=== PATIENT | female | born 2000 | race Caucasian/White ===

== ENCOUNTER 2022-12-04 22:04 | Inpatient (IN) | payer OTHER, SELFPAY ==
--- NOTE | 2022-12-04 22:20 | DI.RAD.S_ITS ---
PROCEDURE: XR CHEST 1V INDICATIONS: suspected sepsis TECHNIQUE: One view of the chest was acquired. COMPARISON: None. FINDINGS: Surgical changes and devices: None. Lungs and pleura: Lungs are clear. No pleural effusions or pneumothorax. Mediastinum: Mediastinal contours appear normal. Heart size is normal. Bones and chest wall: No suspicious bony lesions. Overlying soft tissues appear unremarkable. IMPRESSION: 1. No acute cardiopulmonary disease. Dictated by: Tio Nevarez M.D. on 12/05/2022 at 0:22 Approved by: Tio Nevarez M.D. on 12/05/2022 at 0:23
[2022-12-04 22:22] VITALS: BP 151/80; PULSE 120; RESP 28; TEMP 36.6; O2SAT 94; BMI 20.5
[2022-12-04 22:42] LABS: Add Manual Diff / Slide Review NO; Basophils Absolute Auto 100 /uL (0-100); Basophils Percent Auto 0.6 % (0-2); Eosinophils Absolute Auto 1400 /uL (0-450); Eosinophils Percent Auto 9.6 % (2-4); Hematocrit 37.8 % (36-46); Hemoglobin 12.9 g/dL (12.0-16.0); Lymphocytes Absolute Auto 2700 /uL (1100-4500); Lymphocytes Percent Auto 17.9 % (25-40); Mean Corpuscular HGB Conc 34.1 % (30-36); Mean Corpuscular Hemoglobin 30.6 PG (26-34); Mean Corpuscular Volume 89.6 fL (80-100); Monocytes Absolute Auto 1600 /uL (0-900); Monocytes Percent Auto 10.9 % (3-14); Neutrophils Absolute Auto 9000 /uL (1500-7000); Platelet Count 351 X10^3/uL (150-400); Red Blood Cell Count 4.22 X10^6/uL (4.0-5.2); Red Cell Distribution Width 12.7 % (11.6-14.8); White Blood Cell Count 14.8 X10^3/uL (4.5-11.0)
[2022-12-04 22:49] LABS: INR 1.1 (0.9-1.3); Prothrombin Time 13.1 SECONDS (10.1-12.7)
[2022-12-04 22:52] LABS: PTT Partial Thromboplastin Tim 34 SECONDS (26-36)
--- NOTE | 2022-12-04 22:52 | ED.GENADULT ---
HPI - General Adult General Chief complaint: Shortness of Breath/Dyspnea Stated complaint: Asthma, Congestion, Hard to breathe Time Seen by Provider: 12/04/22 22:46 Source: patient Mode of arrival: Ambulatory History of Present Illness HPI narrative: 22-year-old woman with a history of mild persistent asthma presents with 3 days of worsening respiratory symptoms in severe respiratory distress. She is had upper URI type symptoms has been using her Advair appropriately and increased her albuterol nebulizers over the last 48 hours. She describes productive cough, congestion and increased work of breathing. She states that she had similar symptoms about a year ago and was hospitalized. She states that she is never been intubated because of her asthma. She is not complaining of vomiting diarrhea abdominal pain. She has an IUD and does not suspect . On arrival in the emergency department she is pale with perioral cyanosis, poor air movement overall and looks like she is beginning to show respiratory fatigue. Related Data Home Medications Medication Instructions Recorded Confirmed albuterol sulfate 1.25 mg/3 mL 2.5 mg inhalation ONCE PRN 07/28/21 11/27/22 solution for nebulization Previous Rx's Medication Instructions Recorded amitriptyline 25 mg tablet 25 mg PO BEDTIME Depression and 11/27/22 Headache #90 tabs fluticasone 100 mcg-salmeterol 50 See Rx Instructions .Route 11/27/22 mcg/dose blistr powdr for .COMPLEX Asthma #60 ea inhalation montelukast 10 mg tablet 10 mg PO BEDTIME Asthma #90 tabs 11/27/22 (Singulair) albuterol sulfate 90 mcg/actuation 2 puff PO Q4H PRN shortness of 12/04/22 aerosol inhaler breath or wheezing #8.5 grams Allergies Allergy/AdvReac Type Severity Reaction Status Date / Time SEASONAL ALLERGIES Allergy Unknown Uncoded 11/27/22 09:13 Review of Systems Review of Systems Narrative: Pertinent positive and negative findings as per HPI Patient History Medical History Anemia (~2013) Anxiety (~2013) Depression (~2013) Eczema Family History Father Ulcerative colitis Asthma Mother Arthritis Fibromyalgia Mental health problem Grandmother Cancer Social History Smoking Status: Current every day smoker Smoking Status: Current every day smoker Exam Initial Vital Signs Initial Vital Signs: Vital Signs Temperature 97.9 F 12/04/22 22:22 Pulse Rate 120 H 12/04/22 22:22 Respiratory Rate 28 H 12/04/22 22:22 Blood Pressure 151/80 H 12/04/22 22:22 Pulse Oximetry 94 12/04/22 22:22 Oxygen Delivery Method Room Air 12/04/22 22:22 General: Significant respiratory distress with perioral cyanosis, poor overall perfusion poor air flow throughout and shallow breathing with concerns for impending respiratory failure HEENT: Dry mucous membranes, normal sclera with reactive pupils, Neck: No cervical adenopathy supple Respiratory: Initially almost no movement at all. After DuoNeb slightly improved movement course rhonchi appreciated in the left side particularly left mid axillary line and diffuse wheeze both inspiratory and expiratory bilaterally. She does have some mild supraclavicular and abdominal retractions and looks fatigued. After initial nebulizer she is able to speak in 4-5 word sentences but does continue to tripod. Cardiac: Tachycardic otherwise Regular rate and rhythm no murmurs no bruits Abdomen: Soft, nontender, good bowel tones, no flank pain Skin: Dry, poor overall perfusion no rashes Neurologic: Grossly neurologically intact with no obvious asymmetries or abnormalities Extremities: No trauma, no edema Psych: Cooperative, appropriate insight and affect Course Orders Ordered: ED Orders 12/04/22 22:20 XR chest 1V Stat RT Consult Eval and Treat NOW 12/04/22 22:30 Complete Blood Count AUTO DIFF Stat Comprehensive Metabolic Panel Stat Lactate (Lactic Acid) Stat Lipase Stat PTT Partial Thromboplastin Ad Stat Procalcitonin Stat Prothrombin Time INR Stat Respiratory Panel (Film Array) Stat 12/04/22 22:49 VBG [Venous Blood Gas] Stat 12/04/22 22:55 Blood Culture Stat Ondansetron HCl (Ondansetron 4 Mg/2 Ml Inj) 4 mg IV NOW PRN PRN Reason: Nausea And Vomiting Ondansetron HCl (Ondansetron 4 Mg Odt) 4 mg SL NOW PRN PRN Reason: Nausea And Vomiting Discontinued Medications Albuterol (Albuterol 2.5 Mg/3 Ml Neb (Adult)) 10 mg INH NOW ONE Stop: 12/04/22 22:48 Last Admin: 12/04/22 23:00 Dose: 10 mg Documented By: MATT Albuterol (Albuterol 2.5 Mg/3 Ml Neb (Adult)) 10 mg INH NOW ONE Stop: 12/05/22 00:14 Last Admin: 12/05/22 00:22 Dose: 10 mg Documented By: MATT Sodium Chloride (Normal Saline 0.9%) 1,000 mls @ 1,000 mls/hr IV BOLUS ONE Stop: 12/04/22 23:19 Last Infusion: 12/05/22 01:14 Dose: 0 mls/hr Documented By: Admin: 12/04/22 23:02 Dose: 1,000 mls/hr Documented By: OREN Magnesium Sulfate (Magnesium Sulfate) 2 gm in 50 mls @ 150 mls/hr IV NOW ONE Stop: 12/04/22 23:06 Last Infusion: 12/04/22 23:20 Dose: 0 mls/hr Documented By: CHRISTIANO Co-signed By: KIM Admin: 12/04/22 22:58 Dose: 150 mls/hr Documented By: Co-signed By: KIM Ceftriaxone Sodium 2,000 mg/ (Sodium Chloride) 100 mls @ 200 mls/hr IV NOW ONE Stop: 12/04/22 22:48 Last Infusion: 12/04/22 23:21 Dose: 0 mls/hr Documented By: Admin: 12/04/22 23:00 Dose: 200 mls/hr Documented By: Azithromycin 500 mg/ Dextrose 250 mls @ 250 mls/hr IV NOW ONE Stop: 12/04/22 22:48 Last Infusion: 12/05/22 01:15 Dose: 0 mls/hr Documented By: Admin: 12/04/22 23:38 Dose: 250 mls/hr Documented By: CHRISTIANO Methylprednisolone (Methylprednisolone 125 Mg/2 Ml Vial) 125 mg IV NOW ONE Stop: 12/04/22 22:48 Last Admin: 12/04/22 22:58 Dose: 125 mg Documented By: Vital Signs Vital signs: Vital Signs - 8 hr 12/04/22 22:22 12/04/22 23:04 12/04/22 23:05 Temperature 97.9 F Pulse Rate 120 H 102 H Respiratory Rate 28 H Blood Pressure 151/80 H 121/78 Pulse Oximetry 94 98 Oxygen Delivery Method Room Air Oxygen Flow Rate 12/04/22 23:05 12/04/22 23:34 12/05/22 00:00 Temperature Pulse Rate 102 H 112 H Respiratory Rate 21 Blood Pressure 139/75 Pulse Oximetry 98 89 L Oxygen Delivery Method Oxygen Flow Rate 12/05/22 00:00 12/05/22 00:24 Temperature Pulse Rate 114 H 112 H Respiratory Rate 28 H Blood Pressure Pulse Oximetry 94 98 Oxygen Delivery Method Oxygen Flow Rate 8 Medical Decision Making Lab Data 12/04/22 22:30 12/04/22 22:30 Labs: Lab Results 12/04/22 12/04/22 12/04/22 Range/Units 22:30 22:30 22:30 WBC 14.8 H (4.5-11.0) X10^3/uL RBC 4.22 (4.0-5.2) X10^6/uL Hgb 12.9 (12.0-16.0) g/dL Hct 37.8 (36-46) % MCV 89.6 (80-100) fL MCH 30.6 (26-34) PG MCHC 34.1 (30-36) % RDW 12.7 (11.6-14.8) % Plt Count 351 (150-400) X10^3/uL Neut % (Auto) 61.0 (50-75) % Lymph % (Auto) 17.9 L (25-40) % [place] % (Auto) 10.9 (3-14) % Eos % (Auto) 9.6 H (2-4) % Baso % (Auto) 0.6 (0-2) % Neut # (Auto) 9000 H (8006-3628) /uL Lymph # (Auto) 2700 (5692-1245) /uL [place] # (Auto) 1600 H (0-900) /uL Eos # (Auto) 1400 H (0-450) /uL Baso # (Auto) 100 (0-100) /uL PT 13.1 H (10.1-12.7) SECONDS INR 1.1 (0.9-1.3) APTT 34 (26-36) SECONDS Sodium 136 L (137-145) mmol/L Potassium 3.6 (3.4-5.1) mmol/L Chloride 102 (98-107) mmol/L Carbon Dioxide 23 (22-32) mmol/L BUN 8 (7-17) mg/dL Creatinine 0.50 L (0.52-1.04) mg/dL Estimated GFR > 60 (>60) mL/min BUN/Creatinine Ratio 16.0 (6-22) Glucose 105 H (70-100) mg/dL Lactate (0.7-2.1) mmol/L Calcium 9.6 (8.4-10.2) mg/dL Total Bilirubin 0.5 (0.2-1.3) mg/dL AST 20 (14-36) IU/L ALT 16 (<35) IU/L Alkaline Phosphatase 43 (38-126) U/L Total Protein 8.0 (6.3-8.2) g/dL Albumin 4.5 (3.5-5.0) g/dL Globulin 3.5 (1.7-4.1) g/dL Albumin/Globulin Ratio 1.3 (1.0-2.8) Lipase 49 (23-300) U/L Procalcitonin 0.04 (<0.5) ng/mL Chlamy pneumoniae PCR (Not Detect) Adenovirus (PCR) (Not Detect) B. pertussis DNA (PCR) (Not Detecte) B.parapertussis DNA PCR (Not Detecte) Coronavirus OC43 (PCR) (Not Detect) Coronavirus HKU1 (PCR) (Not Detect) Coronavirus 229E (PCR) (Not Detect) SARS-CoV-2 (PCR) (Not Detecte) Coronavirus NL63 (PCR) (Not Detect) Human Metapneumovir PCR (Not Detect) Influenza Type A (PCR) (Not Detect) Influenza Type B (PCR) (Not Detect) M. pneumoniae (PCR) (Not Detect) Parainfluenza 1 (PCR) (Not Detect) Parainfluenza 2 (PCR) (Not Detect) Parainfluenza 3 (PCR) (Not Detect) Parainfluenza 4 (PCR) (Not Detect) RSV (PCR) (Not Detect) Entero/Rhino (PCR) (Not Detect) 12/04/22 12/04/22 Range/Units 22:30 22:30 WBC (4.5-11.0) X10^3/uL RBC (4.0-5.2) X10^6/uL Hgb (12.0-16.0) g/dL Hct (36-46) % MCV (80-100) fL MCH (26-34) PG MCHC (30-36) % RDW (11.6-14.8) % Plt Count (150-400) X10^3/uL Neut % (Auto) (50-75) % Lymph % (Auto) (25-40) % [place] % (Auto) (3-14) % Eos % (Auto) (2-4) % Baso % (Auto) (0-2) % Neut # (Auto) (4263-8135) /uL Lymph # (Auto) (5477-9436) /uL [place] # (Auto) (0-900) /uL Eos # (Auto) (0-450) /uL Baso # (Auto) (0-100) /uL PT (10.1-12.7) SECONDS INR (0.9-1.3) APTT (26-36) SECONDS Sodium (137-145) mmol/L Potassium (3.4-5.1) mmol/L Chloride (98-107) mmol/L Carbon Dioxide (22-32) mmol/L BUN (7-17) mg/dL Creatinine (0.52-1.04) mg/dL Estimated GFR (>60) mL/min BUN/Creatinine Ratio (6-22) Glucose (70-100) mg/dL Lactate 1.3 (0.7-2.1) mmol/L Calcium (8.4-10.2) mg/dL Total Bilirubin (0.2-1.3) mg/dL AST (14-36) IU/L ALT (<35) IU/L Alkaline Phosphatase (38-126) U/L Total Protein (6.3-8.2) g/dL Albumin (3.5-5.0) g/dL Globulin (1.7-4.1) g/dL Albumin/Globulin Ratio (1.0-2.8) Lipase (23-300) U/L Procalcitonin (<0.5) ng/mL Chlamy pneumoniae PCR Not detected (Not Detect) Adenovirus (PCR) Not detected (Not Detect) B. pertussis DNA (PCR) Not detected (Not Detecte) B.parapertussis DNA PCR Not detected (Not Detecte) Coronavirus OC43 (PCR) Not detected (Not Detect) Coronavirus HKU1 (PCR) Not detected (Not Detect) Coronavirus 229E (PCR) Not detected (Not Detect) SARS-CoV-2 (PCR) Not detected (Not Detecte) Coronavirus NL63 (PCR) Not detected (Not Detect) Human Metapneumovir PCR Not detected (Not Detect) Influenza Type A (PCR) Not detected (Not Detect) Influenza Type B (PCR) Not detected (Not Detect) M. pneumoniae (PCR) Not detected (Not Detect) Parainfluenza 1 (PCR) Not detected (Not Detect) Parainfluenza 2 (PCR) Not detected (Not Detect) Parainfluenza 3 (PCR) Not detected (Not Detect) Parainfluenza 4 (PCR) Not detected (Not Detect) RSV (PCR) Not detected (Not Detect) Entero/Rhino (PCR) Detected H (Not Detect) Point of Care Testing Test Results Negative Urine Dip Bedside Urine Glucose Negative Bedside Urine Bilirubin - Negative Bedside Urine Ketone - Negative Urine Specific [place] 1.005 Bedside Urine Occult Blood - Negative Bedside Urine pH 6.5 Bedside Urine Protein - Negative Bedside Urine Urobilinogen - Negative Bedside Urine Nitrite - Negative Bedside Urine Leukocytes - Negative Esterase Point of care testing: Point of Care Testing Test Results Negative Urine Dip Bedside Urine Glucose Negative Bedside Urine Bilirubin - Negative Bedside Urine Ketone - Negative Urine Specific [place] 1.005 Bedside Urine Occult Blood - Negative Bedside Urine pH 6.5 Bedside Urine Protein - Negative Bedside Urine Urobilinogen - Negative Bedside Urine Nitrite - Negative Bedside Urine Leukocytes - Negative Esterase MDM Narrative Medical decision making narrative: CC: Severe asthma with respiratory distress Complicating co-morbidities: Moderate persistent asthma Data collected from: patient, significant other Differential considered: Severe asthma, sepsis, pneumonia, pneumothorax, acute coronary syndrome, pulmonary embolism Exam documented above, pertinent findings include: Severe respiratory distress with concern for progression to failure secondary to overall respiratory fatigue. Suspect left lobe pneumonia as well as severe asthma exacerbation Lab Test results independently reviewed as above. Pertinent findings: CBC shows mild leukocytosis at 14.8 without significant left shift Chemistries are reassuring with no significant renal abnormalities or electrolyte abnormalities. Lactic acid is not elevated Procalcitonin is undetectable Respiratory panel shows entero rhino virus Imaging studies independently reviewed: Chest x-ray shows no pneumothorax, infiltrates or cardiomyopathy Consultations:Hospitalist, Dr Chua Treatments: Nebulizer treatments, fluids, magnesium, IV steroids, IV antibiotics Re-evaluations: DuoNeb followed by 10 mg of albuterol, fluids, magnesium, IV Solu-Medrol, ceftriaxone and azithromycin after blood cultures are obtained Discussion: 22-year-old with moderate persistent asthma with significant exacerbation and respiratory distress still with significant reason want rhonchi throughout. No pneumothorax no concerns for pulmonary embolism or acute coronary syndrome. She is responded to continuous nebulizer, steroids antibiotics and IV magnesium. Initially there was a concern for sepsis given her elevated white blood cell count and initial presentation however lactate is normal and chest x-ray does not suggest significant consolidated infiltrate. I suspect that this is her rhino enterovirus causing severe exacerbation of her overall asthma. Care is reviewed with the hospitalist and patient will be admitted. Findings reviewed with patient and her significant other questions are answered and she is safe for transfer to floor Critical Care Time Critical Care Time Critical Care Time: Yes Total Critical Care Time: 41 Attestation: Critical care time is separate from other billable procedures. There is a high probability of a significant, sudden or life-threatening deterioration that requires my full and direct attention, intervention and personal management. This critical care time includes consultation with family and other consulting doctors, review of records, and interpretation of data from labs, EKGs and imaging as well as managements of severe respiratory distress in the setting of significant asthma exacerbation Discharge Plan Departure Patient Disposition: Admitted As Inpatient Clinical Impression: Unspecified asthma with (acute) exacerbation, Enterovirus infection Prescriptions: No Action albuterol sulfate 90 mcg/actuation HFA aerosol inhaler 2 puff PO Q4H PRN (Reason: shortness of breath or wheezing) Qty: 8.5 5RF albuterol sulfate 1.25 mg/3 mL solution for nebulization 2.5 mg inhalation ONCE PRN Rx Instructions: 2.5 mg/3 mL (0.083%) solution; inhalation to be used with nebulizer unit; Quantity: 1 Box(es); 14 days supply; 2 refill(s) 01/02/2020 amitriptyline 25 mg tablet 25 mg PO BEDTIME Qty: 90 4RF Rx Instructions: 25 mg tablet; TAKE 1 TABLET BY MOUTH AT BEDTIME; Quantity: 30 Tablet(s); 30 days supply; 6 refill(s) 07/23/2019 fluticasone propion-salmeterol 100-50 mcg/dose blister with device See Rx Instructions .ROUTE .COMPLEX Qty: 60 3RF Dose Instruction: INHALE ONE PUFF BY MOUTH TWICE A DAY Rx Instructions: INHALE ONE PUFF BY MOUTH TWICE A DAY montelukast [Singulair] 10 mg tablet 10 mg PO BEDTIME Qty: 90 4RF Rx Instructions: 10 mg tablet; 1 tab oral at bedtime. Referrals: Ebony Varela PA-C [Primary Care Provider] - Admit Date/Time: 12/05/22 01:53 Admit Provider: David Chua
[2022-12-04 22:54] LABS: Alanine Aminotransferase 16 IU/L (<35); Albumin 4.5 g/dL (3.5-5.0); Albumin Globulin Ratio 1.3 (1.0-2.8); Alkaline Phosphatase 43 U/L (38-126); Aspartate Aminotransferase 20 IU/L (14-36); Bilirubin Total 0.5 mg/dL (0.2-1.3); Blood Urea Nitrogen 8 mg/dL (7-17); Calcium 9.6 mg/dL (8.4-10.2); Carbon Dioxide 23 mmol/L (22-32); Chloride 102 mmol/L (98-107); Estimated Glomerular Filt Rate > 60 mL/min (>60); Globulin 3.5 g/dL (1.7-4.1); Glucose 105 mg/dL (70-100); HEMOLYSIS < 15 (0-50); Lipase 49 U/L (23-300); Potassium 3.6 mmol/L (3.4-5.1); Sodium 136 mmol/L (137-145)
[2022-12-04 22:55] LABS: Lactate (Lactic Acid) 1.3 mmol/L (0.7-2.1)
[2022-12-04] MEDS: methylPREDNISolone 125 MG/2 ML VIAL IV (22:58)
[2022-12-04] MEDS: MAGNESIUM SULFATE 2 GM/50 ML PIGGYBACK IV (22:58)
[2022-12-04] MEDS: ALBUTEROL 2.5 MG/3 ML NEB (ADULT) 10 MG INH (23:00)
[2022-12-04] MEDS: cefTRIAXone 2,000 MG in SODIUM CHLORIDE 0.9% 100 ML 200 MG IV (23:00)
[2022-12-04] MEDS: SODIUM CHLORIDE 0.9% 1,000 ML 1000 ML IV (23:02)
[2022-12-04 23:04] VITALS: PULSE 102; O2SAT 98
[2022-12-04 23:05] VITALS: BP 121/78; PULSE 102; O2SAT 98
[2022-12-04 23:11] LABS: Procalcitonin 0.04 ng/mL (<0.5)
[2022-12-04 23:34] VITALS: PULSE 112; RESP 21; O2SAT 89
[2022-12-04 23:38] LABS: Adenovirus Not Detected (Not Detect); B. parapertussis Not Detected (Not Detecte); Bordetella pertussis Not Detected (Not Detecte); Chlamydophila pneumoniae Not Detected (Not Detect); Coronavirus 229E Not Detected (Not Detect); Coronavirus HKU1 Not Detected (Not Detect); Coronavirus NL 63 Not Detected (Not Detect); Coronavirus OC43 Not Detected (Not Detect); Human Metapneumovirus Not Detected (Not Detect); Human Rhinovirus/Enterovirus Detected (Not Detect); Influenza A Not Detected (Not Detect); Influenza B Not Detected (Not Detect); Mycoplasma pneumoniae Not Detected (Not Detect); Parainfluenza Virus 1 Not Detected (Not Detect); Parainfluenza Virus 2 Not Detected (Not Detect); Parainfluenza Virus 3 Not Detected (Not Detect); Parainfluenza Virus 4 Not Detected (Not Detect); Respiratory Syncytial Virus Not Detected (Not Detect); SARS- CoV-2 Not Detected (Not Detecte)
[2022-12-04] MEDS: AZITHROMYCIN 500 MG in DEXTROSE 5% IN WATER 250 ML 250 MG IV (23:38)
[2022-12-05] VITALS (40 sets, daily range): BP systolic 119–139; BP diastolic 67–83; PULSE 87–125; RESP 2–50; TEMP 36.9–37.3; O2SAT 90–99; BMI 19.8
[2022-12-05] MEDS: ALBUTEROL 2.5 MG/3 ML NEB (ADULT) 10 MG INH (00:22)
--- NOTE | 2022-12-05 00:42 | PC.NURSE ---
This RN takes over care from MALLORY Chavez. Pt is sitting upright in bed with continuous neb treatment as per provider direction. RR of 22, oxygen saturation at 98%, HR at 123. A&Ox4. Inspiratory & expiratory wheeze with rhonchi throughout all guerra bilaterally anterior & posteriorly. Pt denies any pain and is A&Ox4. Provider updated on patient presentation. No new orders at this time.
--- NOTE | 2022-12-05 02:27 | PM.HP.1 ---
History of Present Illness History of Present Illness Date Patient Seen: 12/05/22 Chief complaint: Asthma, Congestion, Hard to breathe Narrative: 22 y/o with PMH of moderate, persistent asthma, presented with severe exacerbation, severe bronchoconstriction and dyspnea. Positive for rhinovirus what probably triggered this flare, After prolonged treatment with bronchodilators and steroid, admitted for monitoring, supportive care, and ongoing treatment. [facility] Medical History Anemia (~2013) Anxiety (~2013) Depression (~2013) Eczema Family History Father Ulcerative colitis Asthma Mother Arthritis Fibromyalgia Mental health problem Grandmother Cancer Social History Smoking Status: Current every day smoker Meds Home Medications and Allergies Home Medications Medication Instructions Recorded Confirmed Type albuterol sulfate 1.25 mg/3 mL 2.5 mg inhalation ONCE PRN 07/28/21 11/27/22 History solution for nebulization amitriptyline 25 mg tablet 25 mg PO BEDTIME Depression and 11/27/22 11/27/22 Rx Headache #90 tabs fluticasone 100 mcg-salmeterol 50 See Rx Instructions .Route 11/27/22 11/27/22 Rx mcg/dose blistr powdr for .COMPLEX Asthma #60 ea inhalation montelukast 10 mg tablet 10 mg PO BEDTIME Asthma #90 tabs 11/27/22 11/27/22 Rx (Singulair) albuterol sulfate 90 mcg/actuation 2 puff PO Q4H PRN shortness of 12/04/22 Rx aerosol inhaler breath or wheezing #8.5 grams Allergies Allergy/AdvReac Type Severity Reaction Status Date / Time SEASONAL ALLERGIES Allergy Unknown Uncoded 11/27/22 09:13 Review of Systems Constitutional Constitutional: Reports malaise and Reports weakness Comments: no chills or sweats, no fever Cardiovascular Cardiovascular: Reports dyspnea Comments: w/o palpitations or chest pain Respiratory Respiratory: Reports chest congestion, Reports cough, Reports dyspnea and Reports wheezing Comments: severe shortness of breath, cough, thisck sputum Gastrointestinal Comments: w/o complaints Genitourinary Comments: w/o dysuria Neurologic Neurologic: Reports weakness Allergic/Immunologic Allergic/Immunologic: Reports wheezing Comments: had rough summer b/o the smoke in the air and pollen Exam Vital Signs (past 8 hours): - 12/04/22 22:22 12/04/22 23:04 12/04/22 23:05 Temperature 97.9 F Pulse Rate 120 H 102 H Respiratory Rate 28 H Blood Pressure 151/80 H 121/78 Pulse Oximetry 94 98 Oxygen Delivery Method Room Air Oxygen Flow Rate 12/04/22 23:05 12/04/22 23:34 12/05/22 00:00 Temperature Pulse Rate 102 H 112 H Respiratory Rate 21 Blood Pressure 139/75 Pulse Oximetry 98 89 L Oxygen Delivery Method Oxygen Flow Rate 12/05/22 00:00 12/05/22 00:24 12/05/22 00:30 Temperature Pulse Rate 114 H 112 H Respiratory Rate 28 H Blood Pressure 127/83 Pulse Oximetry 94 98 Oxygen Delivery Method Oxygen Flow Rate 8 12/05/22 00:30 12/05/22 01:00 12/05/22 01:00 Temperature Pulse Rate 125 H 118 H Respiratory Rate 21 32 H Blood Pressure 125/78 Pulse Oximetry 98 99 Oxygen Delivery Method Oxygen Flow Rate 12/05/22 01:30 12/05/22 01:30 12/05/22 02:00 Temperature Pulse Rate 113 H Respiratory Rate 34 H Blood Pressure 126/82 Pulse Oximetry 98 95 Oxygen Delivery Method Nasal Cannula Oxygen Flow Rate 2 Oxygen Delivery Method Nasal Cannula Oxygen Flow Rate 2 Const General: cooperative Other: sitting in bed in no distress HENMT Head: normal to inspection Other: nasal canulla Eyes General: appearance normal, both eyes and all related structures Other: eomi Neck Neck: normal visual inspection Resp Effort & Inspection: respiratory distress and uses accessory muscles Auscultation: wheezes Other: tachypneic, wheezy Cardio Rate: regular rate Rhythm: regular rhythm Other: RRR GI Inspection: normal to inspection Other: not distended Skin Other: no tashes Extrem Other: w/o swelling Objective Labs 12/04/22 22:30 12/04/22 22:30 Labs: Laboratory Results - last 24 hr 12/04/22 12/04/22 12/04/22 22:30 22:30 22:30 WBC 14.8 H RBC 4.22 Hgb 12.9 Hct 37.8 MCV 89.6 MCH 30.6 MCHC 34.1 RDW 12.7 Plt Count 351 Neut % (Auto) 61.0 Lymph % (Auto) 17.9 L [place] % (Auto) 10.9 Eos % (Auto) 9.6 H Baso % (Auto) 0.6 Neut # (Auto) 9000 H Lymph # (Auto) 2700 [place] # (Auto) 1600 H Eos # (Auto) 1400 H Baso # (Auto) 100 PT 13.1 H INR 1.1 APTT 34 Sodium 136 L Potassium 3.6 Chloride 102 Carbon Dioxide 23 BUN 8 Creatinine 0.50 L Estimated GFR > 60 BUN/Creatinine Ratio 16.0 Glucose 105 H Lactate Calcium 9.6 Total Bilirubin 0.5 AST 20 ALT 16 Alkaline Phosphatase 43 Total Protein 8.0 Albumin 4.5 Globulin 3.5 Albumin/Globulin Ratio 1.3 Lipase 49 Procalcitonin 0.04 Chlamy pneumoniae PCR Adenovirus (PCR) B. pertussis DNA (PCR) B.parapertussis DNA PCR Coronavirus OC43 (PCR) Coronavirus HKU1 (PCR) Coronavirus 229E (PCR) SARS-CoV-2 (PCR) Coronavirus NL63 (PCR) Human Metapneumovir PCR Influenza Type A (PCR) Influenza Type B (PCR) M. pneumoniae (PCR) Parainfluenza 1 (PCR) Parainfluenza 2 (PCR) Parainfluenza 3 (PCR) Parainfluenza 4 (PCR) RSV (PCR) Entero/Rhino (PCR) 12/04/22 12/04/22 22:30 22:30 WBC RBC Hgb Hct MCV MCH MCHC RDW Plt Count Neut % (Auto) Lymph % (Auto) [place] % (Auto) Eos % (Auto) Baso % (Auto) Neut # (Auto) Lymph # (Auto) [place] # (Auto) Eos # (Auto) Baso # (Auto) PT INR APTT Sodium Potassium Chloride Carbon Dioxide BUN Creatinine Estimated GFR BUN/Creatinine Ratio Glucose Lactate 1.3 Calcium Total Bilirubin AST ALT Alkaline Phosphatase Total Protein Albumin Globulin Albumin/Globulin Ratio Lipase Procalcitonin Chlamy pneumoniae PCR Not detected Adenovirus (PCR) Not detected B. pertussis DNA (PCR) Not detected B.parapertussis DNA PCR Not detected Coronavirus OC43 (PCR) Not detected Coronavirus HKU1 (PCR) Not detected Coronavirus 229E (PCR) Not detected SARS-CoV-2 (PCR) Not detected Coronavirus NL63 (PCR) Not detected Human Metapneumovir PCR Not detected Influenza Type A (PCR) Not detected Influenza Type B (PCR) Not detected M. pneumoniae (PCR) Not detected Parainfluenza 1 (PCR) Not detected Parainfluenza 2 (PCR) Not detected Parainfluenza 3 (PCR) Not detected Parainfluenza 4 (PCR) Not detected RSV (PCR) Not detected Entero/Rhino (PCR) Detected H Assessment & Plan Assessment and plan (1) Acute hypoxemic respiratory failure: Problem details: wean off oxygen gradually Status: Acute (2) Asthma exacerbation: Problem details: iv steroid, bronchodilators Likely due to rhinovirus infection Status: Acute (3) Enterovirus infection: Status: Acute (4) Depression: Problem details: elavil Status: Acute (5) Anxiety: Status: Acute (6) Asthma, moderate persistent: Problem details: last exacerbation, similar to this was a year ago Qualifiers: Asthma complication type: unspecified Qualified Code(s): J45.40 - Moderate persistent asthma, uncomplicated Status: Acute Assessment & Plan narrative: 1. Moderate Persistent Asthma Exacerbation - triggered by rhinovirus most probably - steroid, bronchodilators - monitored 2.
[2022-12-05] MEDS: ALBUTEROL 2.5 MG/3 ML NEB (ADULT) INH (03:45)
[2022-12-05 04:32] LABS: MRSA (Nasal) PCR Not Detected (Not Detect)
[2022-12-05 05:18] LABS: Fractionated Inspired Oxygen 55; HCO3 VBG 27 mmol/L (24-28); Oxygen Saturation VBG 98 % (70-75); PCO2 VBG 40.3 mmHg (45-50); PO2 VBG 100 mmHg (35-45); Total CO2 VBG 29 mmol/L (24-29); pH VBG 7.44 (7.33-7.43)
[2022-12-05] MEDS: ALBUTEROL/IPRATROPIUM 3 ML AMPUL INH ×4 (07:14→20:21)
--- NOTE | 2022-12-05 11:08 | CM.DANOTE ---
DCP Assessment Note: Patient is a 22yo F here following asthma exacerbation, severe bronchoconstriction and dyspnea, pos for rhinovirus (H&P). PCP Ebony Varela Payer Guillermina and self pay CROSS CUT SAWYER reviewed EMR. Per provider in rounds, patient is still on a couple ltrs of O2. Not ready for home today but once off O2 can d/c home. CROSS CUT SAWYER entered room and introduced self and role. Patient resting in bed and appeared A/Ox4. Accompanied by beckyienanya Flores ([phone]) at bedside. Patient and boyfriend live together on [address]. Patient is A/I/drives at baseline, Mark can drive her home when medically stable. Asked about ferry pass- CROSS CUT SAWYER told patient can get that set up day of d/c. Patient inquired [place] CROSS CUT SAWYER encouraged them to tell nursing staff that day of d/c, but CM team will continue to follow with meds as needed. Patient reports no other needs at this time. Plan: patient to d/c home with boyfriend [place] when medically stable. CM team will assist with boarding pass at time of d/c. CM team will continue to follow as needed. ANGEL Cruz Discharge Planning/Care Management CM Discharge Assessment Start: 12/05/22 11:05 Freq: Status: Active Protocol: Document 12/05/22 11:06 (Rec: 12/05/22 11:07 [id number]) Discharge Planning Assessment Assigned Tailing Machine Operator ANGEL Mitchell DPOA/Assigned Designee Name Kody (father) Contact Information [phone] Advance Directives? No History Provided By Patient,Medical Record Prior Living Arrangements House Household Members significant other Comment Beckyienanya Flores ([phone] ) Type of transporation used prior to Drives own vehicle admit Independent with ADL's Yes Is patient alert and oriented? Yes Comment per provider, once off O2 can d/c home. Discharge Plan Home Transportation Arrangement boyfriend [place]. Will need priority boarding pass home. Whiteboard Updated in Patient Room with Yes name and ext. # of Tailing Machine Operator Review Status In Process Next Review Type Continued Stay Review
--- NOTE | 2022-12-05 14:18 | P.PN_ITS ---
Subjective Subjective Interval history: 22 F admitted overnight with asthma exacerbation due to rhinovirus infection. Feels a bit better today but still requiring supplemental oxygen. No chest pain, no nausea or vomiting. No fever. Exam Vital Signs (past 8 hours): - 12/05/22 06:30 12/05/22 06:45 12/05/22 07:32 Temperature Pulse Rate 108 H 100 H 107 H Respiratory Rate 47 H 26 H 18 Blood Pressure Pulse Oximetry 91 92 96 Oxygen Delivery Method Nasal Cannula Oxygen Flow Rate 2 12/05/22 07:00 12/05/22 08:00 12/05/22 11:05 Temperature 98.6 F Pulse Rate 110 H 98 H Respiratory Rate 18 18 Blood Pressure 127/80 Pulse Oximetry 96 97 Oxygen Delivery Method Nasal Cannula Nasal Cannula Oxygen Flow Rate 0 1 Oxygen Delivery Method Nasal Cannula Oxygen Flow Rate 1 Narrative Exam Narrative: General:? Patient is well developed and well nourished, in no distress at this time. HEENT:? Normocephalic, atraumatic, extraocular muscles intact, oral pharynx is clear and mucous membranes are moist. Neck: supple and symmetric, trachea is midline, no cervical adenopathy. Chest:? Normal AP diameter and contour without kyphoscoliosis, no tachypnea, equal chest rise bilaterally. Lungs:?diffuse inspiratory and expiratory wheezing, no rhonchi or rales. Cardio:?RRR no m/r/g. Abdomen: S NT ND. Musculoskeletal:? Muscle strength and tone are equal within normal limits, no deformity. Extremities: No edema or joint effusions. No cyanosis or clubbing. Skin:? Pale,? Warm to touch,dry and intact without rashes, ulcerations or petechiae.? Neuro:? Alert and orientated x3, no gross deficits noted of cranial nerves. Psych:? Patient has a well-kept appearance, appropriate affect, mental status at titude thought context and judgment are appropriate for age. Objective Labs 12/04/22 22:30 12/04/22 22:30 Labs: Laboratory Results - last 24 hr 12/04/22 12/04/22 12/04/22 22:30 22:30 22:30 WBC 14.8 H RBC 4.22 Hgb 12.9 Hct 37.8 MCV 89.6 MCH 30.6 MCHC 34.1 RDW 12.7 Plt Count 351 Neut % (Auto) 61.0 Lymph % (Auto) 17.9 L [place] % (Auto) 10.9 Eos % (Auto) 9.6 H Baso % (Auto) 0.6 Neut # (Auto) 9000 H Lymph # (Auto) 2700 [place] # (Auto) 1600 H Eos # (Auto) 1400 H Baso # (Auto) 100 PT 13.1 H INR 1.1 APTT 34 VBG pH VBG pCO2 VBG pO2 VBG HCO3 VBG Total CO2 VBG O2 Saturation VBG Base Excess FiO2 Sodium 136 L Potassium 3.6 Chloride 102 Carbon Dioxide 23 BUN 8 Creatinine 0.50 L Estimated GFR > 60 BUN/Creatinine Ratio 16.0 Glucose 105 H Lactate Calcium 9.6 Total Bilirubin 0.5 AST 20 ALT 16 Alkaline Phosphatase 43 Total Protein 8.0 Albumin 4.5 Globulin 3.5 Albumin/Globulin Ratio 1.3 Lipase 49 Procalcitonin 0.04 Nasal Screen MRSA (PCR) Chlamy pneumoniae PCR Adenovirus (PCR) B. pertussis DNA (PCR) B.parapertussis DNA PCR Coronavirus OC43 (PCR) Coronavirus HKU1 (PCR) Coronavirus 229E (PCR) SARS-CoV-2 (PCR) Coronavirus NL63 (PCR) Human Metapneumovir PCR Influenza Type A (PCR) Influenza Type B (PCR) M. pneumoniae (PCR) Parainfluenza 1 (PCR) Parainfluenza 2 (PCR) Parainfluenza 3 (PCR) Parainfluenza 4 (PCR) RSV (PCR) Entero/Rhino (PCR) 12/04/22 12/04/22 12/04/22 22:30 22:30 23:04 WBC RBC Hgb Hct MCV MCH MCHC RDW Plt Count Neut % (Auto) Lymph % (Auto) [place] % (Auto) Eos % (Auto) Baso % (Auto) Neut # (Auto) Lymph # (Auto) [place] # (Auto) Eos # (Auto) Baso # (Auto) PT INR APTT VBG pH 7.44 H VBG pCO2 40.3 L VBG pO2 100 H VBG HCO3 27 VBG Total CO2 29 VBG O2 Saturation 98 H VBG Base Excess 3.0 FiO2 55 Sodium Potassium Chloride Carbon Dioxide BUN Creatinine Estimated GFR BUN/Creatinine Ratio Glucose Lactate 1.3 Calcium Total Bilirubin AST ALT Alkaline Phosphatase Total Protein Albumin Globulin Albumin/Globulin Ratio Lipase Procalcitonin Nasal Screen MRSA (PCR) Chlamy pneumoniae PCR Not detected Adenovirus (PCR) Not detected B. pertussis DNA (PCR) Not detected B.parapertussis DNA PCR Not detected Coronavirus OC43 (PCR) Not detected Coronavirus HKU1 (PCR) Not detected Coronavirus 229E (PCR) Not detected SARS-CoV-2 (PCR) Not detected Coronavirus NL63 (PCR) Not detected Human Metapneumovir PCR Not detected Influenza Type A (PCR) Not detected Influenza Type B (PCR) Not detected M. pneumoniae (PCR) Not detected Parainfluenza 1 (PCR) Not detected Parainfluenza 2 (PCR) Not detected Parainfluenza 3 (PCR) Not detected Parainfluenza 4 (PCR) Not detected RSV (PCR) Not detected Entero/Rhino (PCR) Detected H 12/05/22 03:10 WBC RBC Hgb Hct MCV MCH MCHC RDW Plt Count Neut % (Auto) Lymph % (Auto) [place] % (Auto) Eos % (Auto) Baso % (Auto) Neut # (Auto) Lymph # (Auto) [place] # (Auto) Eos # (Auto) Baso # (Auto) PT INR APTT VBG pH VBG pCO2 VBG pO2 VBG HCO3 VBG Total CO2 VBG O2 Saturation VBG Base Excess FiO2 Sodium Potassium Chloride Carbon Dioxide BUN Creatinine Estimated GFR BUN/Creatinine Ratio Glucose Lactate Calcium Total Bilirubin AST ALT Alkaline Phosphatase Total Protein Albumin Globulin Albumin/Globulin Ratio Lipase Procalcitonin Nasal Screen MRSA (PCR) Not detected Chlamy pneumoniae PCR Adenovirus (PCR) B. pertussis DNA (PCR) B.parapertussis DNA PCR Coronavirus OC43 (PCR) Coronavirus HKU1 (PCR) Coronavirus 229E (PCR) SARS-CoV-2 (PCR) Coronavirus NL63 (PCR) Human Metapneumovir PCR Influenza Type A (PCR) Influenza Type B (PCR) M. pneumoniae (PCR) Parainfluenza 1 (PCR) Parainfluenza 2 (PCR) Parainfluenza 3 (PCR) Parainfluenza 4 (PCR) RSV (PCR) Entero/Rhino (PCR) [facility] Medical History (Updated 12/05/22 @ 05:33 by Kristi Mccain RN) Anemia (~2013) Anxiety (~2013) Asthma Depression (~2013) Eczema IUD (intrauterine device) in place Panic attack Family History Father Ulcerative colitis Asthma Mother Arthritis Fibromyalgia Mental health problem Grandmother Cancer Social History household members: significant other Smoking Status: Current every day smoker alcohol intake: current Assessment & Plan Assessment & Plan narrative: (1) Acute hypoxemic respiratory failure secondary to moderate persistent asthma exacerbation due to entero/rhinovirus infection - continue IV BID steroids, replace home medications with formulary pulmicort, albuterol. - Appreciate RT management. - Leukocytosis likely due to steroids, low concern for superimposed bacterial infection at this time. - change to prednisone PO once off of supplemental oxygen. - continue home montelukast. (2) Depression: ? ? ?continue home medication amitryptiline 25 mg. Code: FULL Dispo: discharge home once improved breathing, no longer requiring supplemental oxygen. Possible 1-2 days. COVID-19 COVID-19 status: Negative Quality VTE Deep Vein Thrombosis/Pulmonary Embolism Present on Admission: No
[2022-12-05] MEDS: AMITRIPTYLINE 25 MG TABLET PO (20:03)
[2022-12-05] MEDS: BUDESONIDE 0.5 MG/2 ML NEB INH (20:21)
[2022-12-05] MEDS: MONTELUKAST 10 MG TABLET PO (20:24)
[2022-12-06] VITALS (41 sets, daily range): BP systolic 122–129; BP diastolic 72–74; PULSE 83–121; RESP 16–17; TEMP 37.1–37.3; O2SAT 92–97
[2022-12-06] MEDS: BUDESONIDE 0.5 MG/2 ML NEB INH (07:39)
[2022-12-06] MEDS: ALBUTEROL/IPRATROPIUM 3 ML AMPUL INH (07:39)
--- NOTE | 2022-12-06 08:39 | PM.DS.1 ---
History of Present Illness History of Present Illness Date Patient Seen: 12/06/22 Time Patient Seen: 08:39 Chief complaint: Asthma, Congestion, Hard to breathe Narrative: Per admitting provider, 22 y/o with PMH of moderate, persistent asthma, presented with severe exacerbation, severe bronchoconstriction and dyspnea. Positive for rhinovirus what probably triggered this flare, After prolonged treatment with bronchodilators and steroid, admitted for monitoring, supportive care, and ongoing treatment. Discharge Providers Provider Date of admission: 12/05/22 01:53 Discharge Date: 12/06/22 Primary care physician: Ebony Varela PA-C Discharge provider: Lei Brody DO Summary Hospital Course Discharge Diagnosis: (1) Acute hypoxemic respiratory failure secondary to moderate persistent asthma exacerbation due to entero/rhinovirus infection (2) Depression, chronic Hospital Course: This is a 22 year old female with PMH of moderate persistent asthma admitted with asthma exacerbation initially requiring supplemental oxygen. She was able to be weaned off of supplemental oxygen fairly quickly and improved more quickly than expected with nebulizer therapies and steroids. She felt improved and was discharged home. She was prescribed another 5 days of prednisone on discharge for her exacerbation, along with refills for albuterol inhaler and nebulizer. No other changes to home medications are recommended on discharge. Time Spent with Patient Time spent: Less than 30 minutes Exam Vital Signs (past 8 hours): - 12/06/22 04:00 12/06/22 07:55 12/06/22 07:00 Temperature 98.8 F Pulse Rate 113 H 107 H Respiratory Rate 17 16 Blood Pressure 129/72 Pulse Oximetry 95 97 Oxygen Delivery Method Nasal Cannula Nasal Cannula Oxygen Flow Rate 1 1 12/06/22 07:57 Temperature Pulse Rate Respiratory Rate Blood Pressure Pulse Oximetry 96 Oxygen Delivery Method Room Air Oxygen Flow Rate Oxygen Delivery Method Room Air Oxygen Flow Rate 1 Narrative Exam Narrative: General:? Patient is well developed and well nourished, in no distress at this time. Chest:? Normal AP diameter and contour without kyphoscoliosis, no tachypnea, equal chest rise bilaterally. Objective Labs 12/04/22 22:30 12/04/22 22:30 [facility] Medical History (Updated 12/05/22 @ 05:33 by Kristi Mccain RN) Anemia (~2013) Anxiety (~2013) Asthma Depression (~2013) Eczema IUD (intrauterine device) in place Panic attack Family History Father Ulcerative colitis Asthma Mother Arthritis Fibromyalgia Mental health problem Grandmother Cancer Social History household members: significant other Smoking Status: Current every day smoker alcohol intake: current Discharge Plan Discharge Plan Patient Disposition: Home Provider Discharge Comment: You were admitted to the hospital with an asthma exacerbation due to rhinovirus infection. You needed some oxygen briefly but improved after steroids. Discharge orders & Medications Prescriptions: New prednisone 20 mg tablet 40 mg PO DAILY 5 Days Qty: 10 0RF Continued fluticasone propion-salmeterol 100-50 mcg/dose blister with device See Rx Instructions .ROUTE .COMPLEX Rx Instructions: INHALE ONE PUFF BY MOUTH TWICE A DAY albuterol sulfate 1.25 mg/3 mL solution for nebulization 2.5 mg inhalation PRN PRN (Reason: Shortness Of Breath Or Wheezing) 30 Days Qty: 90 1RF Rx Instructions: 2.5 mg/3 mL (0.083%) solution; inhalation to be used with nebulizer unit albuterol sulfate 90 mcg/actuation HFA aerosol inhaler 2 puff PO Q4H PRN (Reason: shortness of breath or wheezing) Qty: 8.5 1RF amitriptyline 25 mg tablet 25 mg PO BEDTIME Qty: 90 4RF Rx Instructions: 25 mg tablet; TAKE 1 TABLET BY MOUTH AT BEDTIME; Quantity: 30 Tablet(s); 30 days supply; 6 refill(s) 07/23/2019 montelukast [Singulair] 10 mg tablet 10 mg PO BEDTIME Qty: 90 4RF Rx Instructions: 10 mg tablet; 1 tab oral at bedtime. Follow up/Referrals: Ebony Varela PA-C [Primary Care Provider] - Diet/Activity/Treatments Diet: Diet as Tolerated and Regular Activity: As tolerated, no restrictions Visit Report/Discharge Packet Stand Alone Forms: Patient Portal/API, Stroke Signs & Symptoms Discharge Data Primary Care Provider: Ebony Varela Discharges patient from system. Discharge Date/Time: 12/06/22 10:00 Quality VTE Deep Vein Thrombosis/Pulmonary Embolism Present on Admission: No
--- NOTE | 2022-12-06 09:25 | CM.DPC ---
DCP Cont: Patient is discharging home today. Was wanting a priority board, preceded to initiate, but patient has no mobility issues, using inhaler. This DC Stunner and MS DanaW, let her know that she most likely will not qualify for priority boarding, is ok with that. Boyfriend is in the room, will be picking up her meds at [facility]. P: Patient is discharging home today, back to [place]. Una Burger RN/Manufactured Buildings Supervisor
== END 2022-12-06 10:00 | disposition home or self-care (01) | DRG 202 ==
LOC: ED 22:46 → AC 12-05 01:53 → ICU 12-05 02:19
PROVIDERS: Admitting Provider Internal Medicine; Emergency Provider Emergency Medicine; PCP Physician Assistant; Referring Provider Emergency Medicine; Visit Provider Internal Medicine
DX: J45.41 Moderate persistent asthma with (acute) exacerbation (principal); J96.01 Acute respiratory failure with hypoxia; B97.89 Other viral agents as the cause of diseases classified elsewhere; B97.10 Unspecified enterovirus as the cause of diseases classified elsewhere; F32.A Depression, unspecified
CPT/HCPCS: 36415; 71045; 80053; 81003; 81025; 82805; 83605; 83690; 84145; 85025; 85610; 85730; 87040; 87633; 87797; 94150; 94640; 94762; 96365; 96366; 96367; 96375; 99285; 99291; J0696; J2920; J2930; J3475; J7613